=== PATIENT | male | born 1990 | race Caucasian/White ===

== ENCOUNTER 2019-02-17 08:39 | Emergency (ER) | payer SELFPAY ==
[~2019-02-17] VITALS: Ht 167.6 cm; Wt 74.7 kg
[~2019-02-17 08:39] MED LIST: FAMO-96 PO; OMEP20CA16 PO; ONDA4TAB14 PO
[2019-02-17 08:53] VITALS: BP 126/82; PULSE 77; RESP 18; Ht 167.6 cm; Wt 74.7 kg
[2019-02-17] MEDS ORDERED: LIDOCAINE/MYLANTA 40 ML BTL PO STA (09:09)
[2019-02-17] MEDS ORDERED: ONDANSETRON (ODT) 4 MG TAB ODT STA (09:09)
== END 2019-02-17 10:15 | disposition home or self-care (01) ==
LOC: FTE 08:39
DX: R10.13 Epigastric pain (principal); R11.2 Nausea with vomiting, unspecified
CPT/HCPCS: 36415; 80053; 81003; 83690; 85025; 99283

== ENCOUNTER 2019-02-19 21:01 | Emergency (ER) | payer SELFPAY ==
[~2019-02-19] VITALS: Ht 175.3 cm; Wt 74.0 kg
[2019-02-19 21:02] VITALS: BP 125/74; PULSE 67; RESP 20; Ht 175.3 cm; Wt 74.0 kg
[2019-02-19] MEDS ORDERED: PANTOPRAZOLE (EC) 40 MG TAB PO ONE (22:00)
[2019-02-19] MEDS ORDERED: LIDOCAINE/MYLANTA 40 ML BTL PO ONE (22:00)
== END 2019-02-19 23:31 | disposition home or self-care (01) ==
LOC: FTE 21:01
DX: R10.13 Epigastric pain (principal)
CPT/HCPCS: 76705